=== PATIENT | female | born 1955 | race American Indian/Alaskan Native ===

== ENCOUNTER 2019-06-30 08:19 | Day surgery (SDC) | payer BC, OTHER ==
[~2019-06-30 08:19] MED LIST: SODIUM CHLORIDE 0.9% 1000 ML 1,000 ML IV SCH
== END 2019-06-30 08:20 | disposition home or self-care (01) ==
LOC: GIO 08:19
PROVIDERS: ATTEND Surgery
DX: K30 Functional dyspepsia (principal); E78.00 Pure hypercholesterolemia, unspecified; I10 Essential (primary) hypertension; J45.909 Unspecified asthma, uncomplicated; G47.30 Sleep apnea, unspecified; M79.7 Fibromyalgia; F41.9 Anxiety disorder, unspecified; Z53.8 Procedure and treatment not carried out for other reasons; Z96.641 Presence of right artificial hip joint; Z98.890 Other specified postprocedural states

== ENCOUNTER 2019-10-24 07:30 | Inpatient (IN) | payer BC ==
--- NOTE | 2019-10-20 10:36 | Anesthesia Consultation ---
Anesthesia Consult and Med Hx Date of service: 10/20/19 - Airway Anesthetic Teeth Evaluation: Good ROM Head & Neck: Adequate Mental/Hyoid Distance: Adequate Mallampati Class: Class II Intubation Access Assessment: Probably Good - Pulmonary Exam CTA: Yes - Cardiac Exam Cardiac Exam: RRR - Pre-Operative Health Status ASA Pre-Surgery Classification: ASA3 Proposed Anesthetic Plan: General - Pulmonary Hx Smoking: Yes (QUIT 31 YEARS AGO) Hx Asthma: Yes (RESCUE INHALER) Hx Sleep Apnea: Yes (CPAP) - Cardiovascular System Hx Hypertension: Yes (OVER 15 YRS) - Central Nervous System Hx Back Pain: Yes (AND NECK) Hx Psychiatric Problems: No - Other Systems Hx Alcohol Use: Yes (WINE) Hx Substance Use: No Hx Cancer: No Hx Obesity: Yes (BMI 40)
[2019-10-20 11:09] LABS: Hemoglobin 12.3 gm/dl (10.1-14.3); Mean Corpuscular HGB Conc 32 % (30-34); Mean Corpuscular Volume 80 fl (79-97); Platelet Count 309 K/mm3 (140-440); Red Blood Count 4.77 M/mm3 (3.65-5.03); Red Cell Distribution Width 14.4 % (13.2-15.2)
[2019-10-20 11:27] LABS: BUN/Creatinine Ratio 25; Blood Urea Nitrogen 20 mg/dL (7-17); Calcium 9.8 mg/dL (8.4-10.2); Hemolysis Index 3
[~2019-10-24 07:30] MED LIST changes: +ENOXAPARIN 40 MG/0.4 ML INJ SUB-Q NR; -SODIUM CHLORIDE 0.9% 1000 ML 1,000 ML IV SCH; +ceFAZolin/Water 2 GM/20 ML 2 GM/20 ML SYRINGE IV NR; +metroNIDAZOLE/NS 500 MG/100 ML 500 MG/100 ML BAG IV NR
[2019-10-24] MEDS ORDERED: ONDANSETRON 4 MG/2 ML INJ IV PRN (12:23)
[2019-10-24] MEDS ORDERED: MAGNESIUM OXIDE 400 MG TAB PO NR (12:26)
[2019-10-24] MEDS ORDERED: ACETAMINOPHEN 500 MG TAB PO NR (12:26)
[2019-10-24] MEDS ORDERED: CELECOXIB 200 MG CAP PO NR (13:00)
[2019-10-24] MEDS: LACTATED RINGERS 1,000 ML IV SCH (13:00)
[2019-10-24] MEDS: MIDAZOLAM 2 MG/2 ML INJ IV NR ×2 (13:00→14:53)
[2019-10-24] MEDS: SCOPOLAMINE TRANSDERMAL PATCH 72 HR TD SCH (13:34)
[2019-10-24] MEDS ORDERED: BUPIVACAINE-EPINEPHRINE/PF 0.5%-1:200,000 (30 ML) VIAL INFILTRATI ONE ×2 (15:33→17:28)
[2019-10-24] MEDS ORDERED: LIDOCAINE (1%) 10 MG/1 ML VIAL 20 ML MDV ONE (15:33)
[2019-10-24] MEDS ORDERED: GLYCOPYRROLATE 0.4 MG/2 ML INJ ONE (16:00)
[2019-10-24] MEDS ORDERED: SUCCINYLCHOLINE CHLORIDE 200 MG/10 ML INJ MDV ONE (16:00)
[2019-10-24] MEDS ORDERED: ROCURONIUM 50 MG/5 ML INJ IV ONE (16:00)
[2019-10-24] MEDS ORDERED: NEOSTIGMINE 10MG/10 ML INJ MDV ONE (16:00)
[2019-10-24] MEDS ORDERED: fentaNYL 250 MCG/5 ML INJ ONE (16:00)
[2019-10-24] MEDS ORDERED: ONDANSETRON 4 MG/2 ML INJ ONE (16:00)
[2019-10-24] MEDS ORDERED: LIDOCAINE MPF (2%) 20 MG/1 ML VIAL 5 ML ONE (16:00)
[2019-10-24] MEDS ORDERED: PHENYLEPHRINE/NS 1,000 MCG/10 ML SYRINGE (OR USE) IV ONE (16:00)
[2019-10-24] MEDS ORDERED: propofoL 200 MG/20 ML VIAL IV ONE (16:01)
[2019-10-24] MEDS ORDERED: METOCLOPRAMIDE 10 MG/2 ML INJ IV PRN (16:14)
[2019-10-24] MEDS ORDERED: HYDROmorphone 1 MG/1 ML INJ IV PRN (16:14)
[2019-10-24] MEDS ORDERED: SIMETHICONE 80 MG CHEW TAB PO PRN (16:14)
[2019-10-24] MEDS ORDERED: MORPHINE 2 MG/1 ML INJ IV PRN (16:14)
[2019-10-24] MEDS ORDERED: LIDOCAINE (1%) 10 MG/1 ML VIAL 20 ML MDV INFILTRATI ONE (17:29)
[2019-10-24] MEDS ORDERED: SODIUM CHLORIDE 0.9% IRR 1,000 ML BOTTLE IR ONE (17:32)
[2019-10-24] MEDS ORDERED: HYDROmorphone 1 MG/1 ML INJ ONE ×2 (17:33→17:48)
--- NOTE | 2019-10-24 17:58 | Operative Report ---
Operative Report Operative Report: DATE:10/24/2019 Surgeon: Ivanna Live MD Rubber Insulator surgeon: Kathy Pruitt DO Pre-op Dx: morbid obesity Post-op Dx: morbid obesity, hiatal hernia Procedure: 1. laparoscopic sleeve gastrectomy, 2. hiatal hernia repair, 3.EGD Anesthesia: GETA EBL: <10ml Specimen: gastric remnant Complication: none immediate Indication: 63 year old female with a history of morbid obesity . Pt is here for sleeve gastrectomy for weight loss to achieve healthier weight and improve or resolve his co-morbidities. She expressed understanding of the risks and benefits. PROCEDURE IN DETAIL: After consent was reviewed, patient was taken back to the operating room, where patient was placed supine on the bed with both arms out. The patient's legs were doubly strapped to the bed. Patient had a foot board in place. Patient had a body warmer placed by anesthesia. General anesthesia was induced with successful endotracheal intubation. Patient was then prepped and draped in normal sterile surgical fashion. Prior to incision an EGD was performed that showed no masses, or polyps. She did have a small hiatal hernia. After a time-out was called, I made a stab incision in the left subcostal area and placed a Veress needle through this incision and insufflated the abdomen to 15 mmHg pressure. I then counted down a handsbreadth below the xiphoid process in the midline and slightly left lateral injected local anesthetic and made about 1 cm transverse incision. I then used a 5-mm Optiview trocar to enter into the abdomen. There was no gross injury to any intra-abdominal structures. I then placed a 30-degree scope through this port and inspected the abdomen. I then placed a 5-mm port in the right upper quadrant, and 1 epigastric area below the costovertebral angle. I then placed a 15-mm port about a handsbreadth in the right mid abdomen. After which a 5mm port was placed in left upper quadrant port along the anterior axillary line in a similar fashion. A liver retractor was placed to the epigastric port to elevate the left lateral lobe and liver. There was a small hiatal hernia again noted that was accentuated with right and left crural dissection. Hiatal hernia sac was dissected from the crura until the GE junction was resting about 2cm below the level of the diaphragm without tension. An anterior crura-plasty was preformed a U-stitch using surgidac suture. The anterior gastric fat pad was excised. Starting approximately 6 cm proximal to the pylorus, using a LigaSure device the short gastrics were taken all the way to the left barbara. Once the lateral portion of the stomach was mobile anesthesia passed a 40 Micronesian bougie along the medial aspect to act as a stent. Using serial firings of endoscopic stapler to gold, followed by 4 blue, the lateral portion of the stomach was transected making sure to did not close to the 2 cm to the incisura. The sleeve stomach was seen to be without kink obstruction or twisting. The pressure was decreased to 10 mmHg. The staple line was inspected for approximately 5 minutes. There was no significant bleeding appreciated except for a slight loose at the most distal portion of the staple line. clips were placed along the staple line area. Tisseel was then sprayed along the entirety of the staple line. The liver retractor was removed. The gastric remnant was grasped and pulled into the 15 mm trocar site. The stomach was extracted via the 15 mm trocar site. The fascia was closed using a deon dmitry device at the level of the fascia with an 0 PDS. trocars were removed under direct visualization. All skin incisions were closed with 4-0 Monocryl followed by Dermabond. Patient was awoken, extubated, and taken to recovery stable condition. All counts were correct.
[2019-10-24] MEDS: HYDROmorphone 1 MG/1 ML INJ IV PRN ×4 (18:44→21:22)
[2019-10-24] MEDS ORDERED: ALBUTEROL 2.5 MG/3 ML NEBU IH ONE ×2 (18:47→18:53)
[2019-10-24] MEDS: hydrALAZINE 20 MG/1 ML INJ IV PRN (18:57)
--- NOTE | 2019-10-24 19:20 | Anesthesia Day of Surgery ---
Anesthesia Day of Surgery - Day of Surgery Patient Examined: Yes Patient H&P Reviewed: Yes Patient is NPO: Yes
--- NOTE | 2019-10-24 19:20 | Post Anesthesia Evaluation ---
- Post Anesthesia Evaluation Patient Participated: Yes Airway Patent: Yes Stable Respiratory Function: Yes Nausea/Vomiting: No Temp > 96.8F: Yes Pain Manageable: Yes Adequeate Hydration: Yes Anesthesia Complications: No Block Receding Appropriately: Not Applicable Patient on Ventilator: No
[2019-10-24] MEDS: KETOROLAC 30 MG/1 ML INJ IV SCH ×2 (22:05→23:00)
[2019-10-24] MEDS: metroNIDAZOLE/NS 500 MG/100 ML 500 MG/100 ML BAG IV SCH (22:11)
[2019-10-24] MEDS: ceFAZolin/NS 1 GM/50 ML 1 GM/50 ML BAG IV SCH (22:13)
[2019-10-25] MEDS: ceFAZolin/NS 1 GM/50 ML 1 GM/50 ML BAG IV SCH (04:16)
[2019-10-25] MEDS: metroNIDAZOLE/NS 500 MG/100 ML 500 MG/100 ML BAG IV SCH ×2 (05:00→12:25)
[2019-10-25] MEDS: ONDANSETRON 4 MG/2 ML INJ IV PRN (05:16)
[2019-10-25] MEDS: LACTATED RINGERS 1,000 ML IV SCH ×3 (05:20→21:53)
[2019-10-25] MEDS: KETOROLAC 30 MG/1 ML INJ IV SCH ×4 (05:29→22:43)
[2019-10-25] MEDS: hydrALAZINE 20 MG/1 ML INJ IV PRN ×3 (05:35→21:47)
[2019-10-25 06:11] LABS: Alanine Aminotransferase 16 units/L (7-56); Albumin 3.5 g/dL (3.9-5); BUN/Creatinine Ratio 21; Blood Urea Nitrogen 15 mg/dL (7-17); Calcium 9.1 mg/dL (8.4-10.2); Hemolysis Index 11
[2019-10-25 06:26] LABS: Basophils % (Auto) 0.2 % (0.0-1.8); Hemoglobin 11.9 gm/dl (10.1-14.3); Lymphocytes # (Auto) 1.4 K/mm3 (1.2-5.4); Lymphocytes % (Auto) 10.8 % (13.4-35.0); Monocytes # (Auto) 0.5 K/mm3 (0.0-0.8); Monocytes % (Auto) 3.9 % (0.0-7.3)
[2019-10-25 06:33] LABS: Hematocrit 37.4 % (30.3-42.9); Mean Corpuscular HGB Conc 32 % (30-34); Mean Corpuscular Volume 79 fl (79-97); Red Blood Count 4.72 M/mm3 (3.65-5.03); Red Cell Distribution Width 14.4 % (13.2-15.2)
[2019-10-25 06:37] LABS: Platelet Count 256 K/mm3 (140-440)
[2019-10-25] MEDS ORDERED: ALBUTEROL 8.5 GM INHALATION IH PRN (07:46)
[2019-10-25] MEDS ORDERED: ALBUTEROL 2.5 MG/3 ML NEBU IH PRN (07:54)
[2019-10-25] MEDS ORDERED: VERAPAMIL 80 MG TAB PO SCH ×2 (08:00→10:00)
[2019-10-25] MEDS: buPROPion XL 150 MG TAB PO SCH (09:57)
[2019-10-25] MEDS: ENOXAPARIN 40 MG/0.4 ML INJ SUB-Q SCH (09:57)
[2019-10-25] MEDS ORDERED: BUPROPION HCL PO SCH (10:00)
[2019-10-25] MEDS: HYDROcodone/APAP 7.5-325MG-15ML ORAL LIQD PO PRN (10:00)
--- NOTE | 2019-10-25 12:39 | Progress Note ---
Assessment and Plan Postop day #1 status post laparoscopic sleeve gastrectomy with hiatal hernia repair. Afebrile and stable. Showing no clinical signs of leak or bleeding. Will advance clear liquids as tolerated. We will continue frequent ambulation. Subjective Date of service: 10/25/19 Narrative: No acute events overnight. Patient does not have any complaints, other than difficulty with night nurse. She is tolerating ice chips and ambulating. Pain is controlled. Objective Vital Signs - 12hr 10/25/19 10/25/19 10/25/19 00:43 04:34 07:35 Temperature 98.4 F 98.4 F 98.1 F Pulse Rate 75 89 95 H Respiratory 20 20 18 Rate Blood Pressure 158/97 186/89 167/80 [Left] O2 Sat by Pulse 96 94 98 Oximetry 10/25/19 10/25/19 08:22 11:52 Temperature 98.3 F Pulse Rate 88 Respiratory 20 Rate Blood Pressure 145/68 [Left] O2 Sat by Pulse 98 95 Oximetry - General physical appearance well developed, no distress, no pain - Respiratory normal expansion, normal respiratory effort - Abdomen soft, other (obese, incisions c/d/i, appropriatley tender to palpation) - Labs 10/25/19 05:24 10/25/19 05:24 Diabetes panel 10/25/19 Range/Units 05:24 Sodium 138 (137-145) mmol/L Potassium 3.7 (3.6-5.0) mmol/L Chloride 99.3 (98-107) mmol/L Carbon Dioxide 23 (22-30) mmol/L BUN 15 (7-17) mg/dL Creatinine 0.7 (0.7-1.2) mg/dL Glucose 121 H (65-100) mg/dL Calcium 9.1 (8.4-10.2) mg/dL AST 24 (5-40) units/L ALT 16 (7-56) units/L Alkaline Phosphatase 102 (35-129) units/L Total Protein 7.6 (6.3-8.2) g/dL Albumin 3.5 L (3.9-5) g/dL Calcium panel 10/25/19 Range/Units 05:24 Calcium 9.1 (8.4-10.2) mg/dL Albumin 3.5 L (3.9-5) g/dL Pituitary panel 10/25/19 Range/Units 05:24 Sodium 138 (137-145) mmol/L Potassium 3.7 (3.6-5.0) mmol/L Chloride 99.3 (98-107) mmol/L Carbon Dioxide 23 (22-30) mmol/L BUN 15 (7-17) mg/dL Creatinine 0.7 (0.7-1.2) mg/dL Glucose 121 H (65-100) mg/dL Calcium 9.1 (8.4-10.2) mg/dL Adrenal panel 10/25/19 Range/Units 05:24 Sodium 138 (137-145) mmol/L Potassium 3.7 (3.6-5.0) mmol/L Chloride 99.3 (98-107) mmol/L Carbon Dioxide 23 (22-30) mmol/L BUN 15 (7-17) mg/dL Creatinine 0.7 (0.7-1.2) mg/dL Glucose 121 H (65-100) mg/dL Calcium 9.1 (8.4-10.2) mg/dL Total Bilirubin 0.30 (0.1-1.2) mg/dL AST 24 (5-40) units/L ALT 16 (7-56) units/L Alkaline Phosphatase 102 (35-129) units/L Total Protein 7.6 (6.3-8.2) g/dL Albumin 3.5 L (3.9-5) g/dL
[2019-10-25] MEDS ORDERED: VERAPAMIL 120 MG TAB PO ONE (19:00)
[2019-10-25] MEDS ORDERED: VERAPAMIL 80 MG TAB PO ONE (19:00)
[2019-10-26] MEDS: hydrALAZINE 20 MG/1 ML INJ IV PRN ×2 (04:38→15:02)
[2019-10-26] MEDS: KETOROLAC 30 MG/1 ML INJ IV SCH ×2 (04:50→08:40)
[2019-10-26] MEDS: HYDROcodone/APAP 7.5-325MG-15ML ORAL LIQD PO PRN ×2 (08:11→16:35)
[2019-10-26 08:20] LABS: Basophils % (Auto) 0.3 % (0.0-1.8); Eosinophils % (Auto) 0.3 % (0.0-4.3); Hematocrit 37.5 % (30.3-42.9); Hemoglobin 11.9 gm/dl (10.1-14.3); Lymphocytes # (Auto) 2.9 K/mm3 (1.2-5.4); Lymphocytes % (Auto) 26.9 % (13.4-35.0); Mean Corpuscular HGB Conc 32 % (30-34); Mean Corpuscular Volume 81 fl (79-97); Monocytes # (Auto) 0.8 K/mm3 (0.0-0.8); Monocytes % (Auto) 7.1 % (0.0-7.3); Platelet Count 269 K/mm3 (140-440); Red Blood Count 4.65 M/mm3 (3.65-5.03); Red Cell Distribution Width 14.5 % (13.2-15.2)
[2019-10-26] MEDS: ENOXAPARIN 40 MG/0.4 ML INJ SUB-Q SCH (08:30)
[2019-10-26] MEDS: VERAPAMIL 80 MG TAB PO SCH (08:30)
[2019-10-26] MEDS: ONDANSETRON 4 MG/2 ML INJ IV PRN (08:33)
[2019-10-26 08:42] LABS: Alanine Aminotransferase 12 units/L (7-56); Albumin 3.7 g/dL (3.9-5); BUN/Creatinine Ratio 14; Blood Urea Nitrogen 10 mg/dL (7-17); Calcium 9.2 mg/dL (8.4-10.2); Hemolysis Index 2
[2019-10-26] MEDS: buPROPion XL 150 MG TAB PO SCH (10:03)
--- NOTE | 2019-10-26 11:27 | Discharge Summary ---
Providers - Providers Date of Admission: 10/24/19 15:00 Date of discharge: 10/26/19 Attending physician: ERICKA WATKINS MD 10/24/19 16:14 Physical Therapy Evaluation and Treat [CONS] Routine Comment: Reason For Exam: post op bariatric surgery, eval for ambulation Hospitalization Reason for admission: s/p laparoscopic sleeve gastrectomy Condition: Good Procedures: laparoscopic sleeve gastrectomy with hiatal hernia repair Hospital course: Pt had an uneventful recovery s/p lap gastric sleeve with hiatal hernia. She remained afebrile and stable while tolerating clear liquids and ambulating without difficulty. She showed no clinical signs of leak or bleeding prior to discharge. Disposition: - TO HOME OR SELFCARE Core Measure Documentation - Palliative Care Palliative Care/ Comfort Measures: Not Applicable - Core Measures Any of the following diagnoses?: none Exam - Constitutional Vitals: Temp Pulse Resp BP Pulse Ox 98.9 F 68 20 148/65 94 10/26/19 10:22 10/26/19 10:22 10/26/19 10:22 10/26/19 10:22 10/26/19 10:22 General appearance: Present: no acute distress, obese - Respiratory Respiratory effort: normal - Cardiovascular Rhythm: regular Heart Sounds: Present: S1 & S2 - Extremities Extremities: no ischemia - Abdominal General gastrointestinal: Present: other (soft, incisions c/d/i, appropriatley tender to palpation) - Psychiatric Psychiatric: appropriate mood/affect Plan Activity: advance as tolerated Diet: clear liquids Wound: open to air, keep clean and dry Follow up with: CHETNA FLORES [Other] - 7 Days
[2019-10-27] MEDS: HYDROcodone/APAP 7.5-325MG-15ML ORAL LIQD PO PRN ×2 (01:25→10:28)
[2019-10-27] MEDS: hydrALAZINE 20 MG/1 ML INJ IV PRN ×2 (01:30→10:25)
[2019-10-27] MEDS: SCOPOLAMINE TRANSDERMAL PATCH 72 HR TD SCH (05:35)
[2019-10-27] MEDS: VERAPAMIL 80 MG TAB PO SCH (08:00)
[2019-10-27] MEDS: buPROPion XL 150 MG TAB PO SCH (10:31)
[2019-10-27] MEDS: ENOXAPARIN 40 MG/0.4 ML INJ SUB-Q SCH (10:31)
[2019-10-27 11:44] VITALS: BP 168/76
== END 2019-10-27 13:30 | disposition home health service (06) | DRG 621 ==
LOC: 3A 15:00 → 3B-SURG 19:53
PROVIDERS: ADMIT Surgery; ATTEND Surgery
PROC: 0DB64Z3 Excision of Stomach, Percutaneous Endoscopic Approach, Vertical (ICD-10-PCS; principal; 2019-10-24)
PROC: 0BQT4ZZ Repair Diaphragm, Percutaneous Endoscopic Approach (ICD-10-PCS; 2019-10-24)
PROC: 0DJ08ZZ Inspection of Upper Intestinal Tract, Via Natural or Artificial Opening Endoscopic (ICD-10-PCS; 2019-10-24)
DX: E66.01 Morbid (severe) obesity due to excess calories (principal); J45.909 Unspecified asthma, uncomplicated; I10 Essential (primary) hypertension; G47.30 Sleep apnea, unspecified; Z87.891 Personal history of nicotine dependence; Z68.41 Body mass index [BMI] 40.0-44.9, adult
CPT/HCPCS: 36415; 80048; 80053; 85025; 85027; 88307; 94640; 94760; G0378; C9250; J0330; J0360; J0690; J1170; J1650; J1885; J2250; J2270; J2370; J2405; J2704; J2710; J2765; J3010; J7120; U0003-CS

== ENCOUNTER 2019-12-13 12:11 | Outpatient (CLI) | payer BC ==
[2019-12-13 12:53] LABS: Basophils % (Auto) 0.5 % (0.0-1.8); Eosinophils # (Auto) 0.1 K/mm3 (0.0-0.4); Eosinophils % (Auto) 0.9 % (0.0-4.3); Hematocrit 37.4 % (30.3-42.9); Hemoglobin 12.1 gm/dl (10.1-14.3); Lymphocytes % (Auto) 30.6 % (13.4-35.0); Mean Corpuscular HGB Conc 32 % (30-34); Mean Corpuscular Volume 82 fl (79-97); Monocytes # (Auto) 0.5 K/mm3 (0.0-0.8); Monocytes % (Auto) 7.7 % (0.0-7.3); Platelet Count 255 K/mm3 (140-440); Red Blood Count 4.57 M/mm3 (3.65-5.03); Red Cell Distribution Width 14.7 % (13.2-15.2)
[2019-12-13 13:02] LABS: Alanine Aminotransferase 12 units/L (7-56); Albumin 4.3 g/dL (3.9-5); BUN/Creatinine Ratio 18; Blood Urea Nitrogen 18 mg/dL (7-17); Calcium 9.7 mg/dL (8.4-10.2); Hemolysis Index 0; Iron 57 ug/dL (37-170); Total Iron Binding Capacity 299 mcg/dL (250-450)
== END 2019-12-13 12:12 | disposition home or self-care (01) ==
LOC: LAB 12:11
PROVIDERS: ATTEND Surgery
DX: Z00.00 Encounter for general adult medical examination without abnormal findings (principal); K30 Functional dyspepsia; D50.9 Iron deficiency anemia, unspecified; E61.8 Deficiency of other specified nutrient elements
CPT/HCPCS: 36415; 80053; 82306; 82607; 83550; 83970; 84425; 85025